=== PATIENT | female | born 1960 | race African-American/Black ===

== ENCOUNTER 2018-07-22 23:31 | Inpatient (IN) | payer BC, OTHER ==
[~2018-07-22] VITALS: Ht 167.6 cm; Wt 99.8 kg
[~2018-07-22 23:31] MED LIST: CLON0.5T PO; GABA-826 PO; HYDR-3237 PO; LEVO25TA2 PO; ZOLP-413 PO
[2018-07-23] MEDS ORDERED: ALBUTEROL SULFATE 2.5 MG/3 ML NPPB ONE
[2018-07-23 00:19] LABS: BASOPHILS # (AUTO) 0.03 x10^3/uL (0-0.1); BASOPHILS % (AUTO) 0 % (0-1); EOSINOPHILS # (AUTO) 0.21 x10^3/uL (0-0.4); EOSINOPHILS % (AUTO) 1 % (1-7); LYMPHOCYTES % (AUTO) 15 % (22-44); MD NO; MEAN CORPUSCULAR HGB CONC 33.9 g/dL (32.4-35.8); MEAN CORPUSCULAR VOLUME 88.6 fL (80-100); MEAN PLATELET VOLUME 9.1 fL (7.4-10.4); MONOCYTES # (AUTO) 0.68 x10^3/uL (0.2-0.8); MONOCYTES % (AUTO) 5 % (2-9); NEUTROPHILS # (AUTO) 11.73 x10^3/uL (1.8-6.8); NEUTROPHILS % (AUTO) 79 % (42-75); PLATELET COUNT 265 x10^3/uL (130-400); RED BLOOD COUNT 4.71 x10^6/uL (3.82-5.3); RED CELL DISTRIBUTION WIDTH 13.9 % (9.6-15.2)
[2018-07-23 00:28] LABS: ALBUMIN 3.5 g/dL (3.4-5.0); ANION GAP 10 mmol/L (5-15); CALCIUM 9.1 mg/dL (8.5-10.1); CHLORIDE 105 mmol/L (98-107)
[2018-07-23] MEDS ORDERED: CHLO25TA PO (01:16)
[2018-07-23] MEDS ORDERED: ATEN100T PO (01:16)
[2018-07-23] MEDS ORDERED: SODIUM CHLORIDE FLUSH 10ML SYR IVF PRN (01:30)
[2018-07-23 01:50] VITALS: BP 145/82
[2018-07-23] MEDS ORDERED: ALBUTEROL SULFATE 2.5 MG/3 ML NPPB PRN ×2 (03:00→04:00)
[2018-07-23] MEDS ORDERED: hydrALAzine 20 MG/ML, 1ML IVPush PRN (04:00)
[2018-07-23] MEDS ORDERED: ONDANSETRON 2MG/ML, 2ML IVPush PRN (04:00)
[2018-07-23] MEDS ORDERED: ACETAMINOPHEN 325 MG TABLET PO PRN (04:00)
[2018-07-23] MEDS ORDERED: DOCUSATE 100 MG CAPSULE PO PRN (04:00)
[2018-07-23] MEDS: ENOXAPARIN 40 MG/0.4 ML SQ SCH (04:14)
[2018-07-23 04:39] VITALS: BP 151/91
[2018-07-23] MEDS: ALBUTEROL SULFATE 2.5 MG/3 ML NPPB SCH ×3 (07:35→18:08)
[2018-07-23 07:50] VITALS: BP 155/109
[2018-07-23] MEDS ORDERED: ATENOLOL 50 MG TABLET ONE (08:07)
[2018-07-23] MEDS: CHLORTHALIDONE 25 MG TABLET PO SCH (08:13)
[2018-07-23] MEDS: LEVOTHYROXINE 25 MCG TABLET PO SCH (08:13)
[2018-07-23] MEDS: PANTOPROZOLE 40MG TABLET PO SCH (08:14)
[2018-07-23] MEDS: ATENOLOL 100 MG TABLET PO SCH (08:14)
[2018-07-23 09:13] LABS: MICROSCOPIC AUTO
[2018-07-23 09:20] LABS: CULTURE INDICATED? YES
[2018-07-23 11:58] LABS: CLOSTRIDIUM DIFFICILE ANTIGEN NEGATIVE; CLOSTRIDIUM DIFFICILE TOXIN NEGATIVE (Negative)
[2018-07-23] MEDS: CEFTRIAXONE 1,000 MG in SODIUM CHLORIDE 0.9% 50 ML IV SCH (12:09)
[2018-07-23 15:56] VITALS: BP 119/74
[2018-07-23 19:36] VITALS: BP 124/74
[2018-07-23] MEDS ORDERED: TEMAZEPAM 15 MG CAPSULE PO PRN (22:30)
[2018-07-24] MEDS: ALBUTEROL SULFATE 2.5 MG/3 ML NPPB SCH ×3 (01:22→10:07)
[2018-07-24 01:49] VITALS: BP 141/88
[2018-07-24] MEDS ORDERED: HYDROcodone/CHLORPHENIR ORAL SUSP PO ONE (02:30)
[2018-07-24] MEDS: ENOXAPARIN 40 MG/0.4 ML SQ SCH (05:47)
[2018-07-24 06:03] LABS: CHLORIDE 103 mmol/L (98-107)
[2018-07-24 06:19] LABS: ANION GAP 9 mmol/L (5-15); CALCIUM 8.8 mg/dL (8.5-10.1); THYROID STIMULATING HORMONE 0.157 mIU/L (0.358-3.740)
[2018-07-24 06:22] LABS: BASOPHILS # (AUTO) 0.05 x10^3/uL (0-0.1); BASOPHILS % (AUTO) 0 % (0-1); EOSINOPHILS # (AUTO) 0.15 x10^3/uL (0-0.4); EOSINOPHILS % (AUTO) 1 % (1-7); LYMPHOCYTES # (AUTO) 2.29 x10^3/uL (1-3.4); LYMPHOCYTES % (AUTO) 16 % (22-44); MD NO; MEAN CORPUSCULAR HEMOGLOBIN 30.9 pg (27.0-34.8); MEAN CORPUSCULAR HGB CONC 34.8 g/dL (32.4-35.8); MEAN CORPUSCULAR VOLUME 88.8 fL (80-100); MEAN PLATELET VOLUME 9.7 fL (7.4-10.4); MONOCYTES # (AUTO) 0.72 x10^3/uL (0.2-0.8); MONOCYTES % (AUTO) 5 % (2-9); NEUTROPHILS # (AUTO) 10.92 x10^3/uL (1.8-6.8); NEUTROPHILS % (AUTO) 77 % (42-75); PLATELET COUNT 240 x10^3/uL (130-400); RED BLOOD COUNT 4.31 x10^6/uL (3.82-5.3); RED CELL DISTRIBUTION WIDTH 14.1 % (9.6-15.2)
[2018-07-24 07:04] VITALS: BP 130/82
[2018-07-24] MEDS: PANTOPROZOLE 40MG TABLET PO SCH (08:28)
[2018-07-24] MEDS: LEVOTHYROXINE 25 MCG TABLET PO SCH (08:28)
[2018-07-24] MEDS: CHLORTHALIDONE 25 MG TABLET PO SCH (08:28)
[2018-07-24] MEDS: ATENOLOL 100 MG TABLET PO SCH (08:29)
[2018-07-24] MEDS ORDERED: ALBU8.5H8 INH (09:39)
[2018-07-24] MEDS ORDERED: BENZ100C PO (09:39)
[2018-07-24] MEDS ORDERED: PRED20TA PO (09:39)
[2018-07-24] MEDS ORDERED: POTASSIUM CHLORIDE 20 MEQ TAB.ER.PRT PO ONE (10:00)
[2018-07-24] MEDS: CEFTRIAXONE 1,000 MG in SODIUM CHLORIDE 0.9% 50 ML IV SCH (11:05)
[2018-07-24] MEDS ORDERED: LEVO750T26 PO (12:24)
== END 2018-07-24 14:05 | disposition home or self-care (01) | DRG 191 ==
LOC: ED 23:59 → EDIP 07-23 01:05 → 4EST 07-23 01:38 → DCLOUNGE 07-24 13:45
PROVIDERS: ADMIT Internal Medicine; ATTEND Internal Medicine
DX: J44.0 Chronic obstructive pulmonary disease with (acute) lower respiratory infection (principal); N39.0 Urinary tract infection, site not specified; J44.1 Chronic obstructive pulmonary disease with (acute) exacerbation; I10 Essential (primary) hypertension; E03.9 Hypothyroidism, unspecified; J20.9 Acute bronchitis, unspecified; Z83.3 Family history of diabetes mellitus; Z86.718 Personal history of other venous thrombosis and embolism; Z90.710 Acquired absence of both cervix and uterus; Z88.5 Allergy status to narcotic agent; Z90.722 Acquired absence of ovaries, bilateral; Z90.79 Acquired absence of other genital organ(s)
CPT/HCPCS: 36415; 71045; 80048; 81001; 82040; 83735; 84443; 85025; 87086; 87324; 93005; 94640; 96372; 99285; G0378; J0696; J1650; J7613; J7512

== ENCOUNTER → 2018-10-26 | Outpatient (CLI) | payer OTHER ==
[~2018-10-26] MED LIST changes: +ALBU8.5H8 INH; +ATEN100T PO; +BENZ100C PO; +CHLO25TA PO; +LEVO750T26 PO; +PRED20TA PO
== END | disposition home or self-care (01) ==
LOC: RAD 14:06
DX: R07.9 Chest pain, unspecified (principal)
CPT/HCPCS: 71046

== ENCOUNTER → 2018-11-21 | Outpatient (CLI) | payer MEDICARE | END | disposition home or self-care (01) | LOC: STAR 11:01 | PROVIDERS: ATTEND Nurse Practitioner | DX: Z01.818 Encounter for other preprocedural examination (principal); R07.9 Chest pain, unspecified | CPT/HCPCS: 93005 ==

== ENCOUNTER 2019-04-16 14:33 | Emergency (ER) | payer MEDICARE ==
[~2019-04-16] VITALS: Ht 167.6 cm; Wt 100.7 kg
[2019-04-16 15:27] LABS: BASOPHILS # (AUTO) 0.03 x10^3/uL (0-0.1); BASOPHILS % (AUTO) 0 % (0-1); EOSINOPHILS # (AUTO) 0.16 x10^3/uL (0-0.4); EOSINOPHILS % (AUTO) 2 % (1-7); LYMPHOCYTES # (AUTO) 1.33 x10^3/uL (1-3.4); LYMPHOCYTES % (AUTO) 17 % (22-44); MD NO; MEAN CORPUSCULAR HGB CONC 32.8 g/dL (32.4-35.8); MEAN CORPUSCULAR VOLUME 91.3 fL (80-100); MEAN PLATELET VOLUME 9.6 fL (7.4-10.4); MONOCYTES # (AUTO) 0.38 x10^3/uL (0.2-0.8); MONOCYTES % (AUTO) 5 % (2-9); NEUTROPHILS # (AUTO) 5.85 x10^3/uL (1.8-6.8); NEUTROPHILS % (AUTO) 76 % (42-75); PLATELET COUNT 192 x10^3/uL (130-400); RED BLOOD COUNT 4.83 x10^6/uL (3.82-5.3); RED CELL DISTRIBUTION WIDTH 14.1 % (9.6-15.2)
[2019-04-16 15:54] LABS: ALANINE AMINOTRANSFERASE 36 U/L (12-78); ALBUMIN 3.6 g/dL (3.4-5.0); ANION GAP 4 mmol/L (5-15); CALCIUM 8.8 mg/dL (8.5-10.1); CHLORIDE 105 mmol/L (98-107)
[2019-04-16 15:59] LABS: ALKALINE PHOSPHATASE 79 U/L (45-117); BILIRUBIN,TOTAL 0.7 mg/dL (0.2-1.0); CREATININE 0.95 mg/dL (0.55-1.02); TOTAL PROTEIN 7.3 g/dL (6.4-8.2); TROPONIN I < 0.015 ng/mL (0.000-0.045)
[2019-04-16 16:56] VITALS: BP 151/80
[2019-04-17] MEDS ORDERED: DOXA2TAB9 PO (17:00)
== END 2019-04-16 17:18 | disposition left against medical advice (07) ==
LOC: ED 17:12
DX: I10 Essential (primary) hypertension (principal); R51 Headache; R07.89 Other chest pain
CPT/HCPCS: 36415; 71045; 80053; 84484; 85025; 93005; 99284

== ENCOUNTER 2019-05-31 18:07 | Emergency (ER) | payer MEDICARE ==
[~2019-05-31] VITALS: Ht 167.6 cm; Wt 97.7 kg
[~2019-05-31 18:07] MED LIST changes: +DOXA2TAB9 PO
[2019-05-31 18:11] VITALS: BP 166/102
[2019-05-31] MEDS ORDERED: OXYcodone/APAP 5/325MG TABLET ONE (18:36)
[2019-05-31] MEDS ORDERED: ONDANSETRON ODT 4 MG ONE (18:36)
--- NOTE | 2019-05-31 18:44 | NUR ---
Patient to room; provider to room shortly after; rn at bedside; screening complete; orders verbalized and patient verbalized understanding. Medications given be md orders after placement in ehr; then warm blanket provided. Awaiting for effect of pain meds and for u/s of sinus.
[2019-05-31] MEDS ORDERED: ONDANSETRON ODT 4 MG PO ONE (19:00)
[2019-05-31] MEDS ORDERED: OXYcodone/APAP 5/325MG TABLET PO ONE (19:00)
--- NOTE | 2019-05-31 19:27 | NUR ---
Ultrasound at bedside
== END 2019-05-31 20:26 | disposition home or self-care (01) ==
LOC: ED 18:39
DX: K04.7 Periapical abscess without sinus (principal); I10 Essential (primary) hypertension; J44.9 Chronic obstructive pulmonary disease, unspecified
CPT/HCPCS: 76536; 99284; Q0162